=== PATIENT | female | born 2000 | race Caucasian/White ===

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

== ENCOUNTER 2024-03-18 23:22 | Emergency (ER) | payer OTHER ==
[2024-03-18 23:26] VITALS: BP 115/75; PULSE 86; RESP 20; TEMP 98.2; BMI 24.9
[2024-03-19 00:40] LABS: URINE APPEARANCE CLEAR; URINE BILIRUBIN NEGATIVE (NEGATIVE); URINE COLOR YELLOW; URINE GLUCOSE (UA) NEGATIVE (NEGATIVE); URINE KETONE NEGATIVE (NEGATIVE); URINE LEUK ESTERASE NEGATIVE (NEGATIVE); URINE NITRITE NEGATIVE (NEGATIVE); URINE PROTEIN NEGATIVE (NEGATIVE); URINE UROBILINOGEN 0.2 mg/dL (0.2-1.0)
[2024-03-19] MEDS ORDERED: ACETAMINOPHEN INJECTION 100 ML IVPB ONE (00:48)
[2024-03-19] MEDS: ACETAMINOPHEN 1000 MG/100 ML BAG IVPB ONE (01:04)
[2024-03-19 01:10] LABS: BASO % 0.1 % (0-2.0); EOS % 0.4 % (0-4.5); HEMATOCRIT 36.9 % (32.4-45.2); HEMOGLOBIN 12.7 GM/dL (10.7-15.3); MCH 32.6 pg (25.7-33.7); MCHC 34.4 g/dl (32.0-36.0); MEAN CELL VOLUME 94.8 fl (80-96); MEAN PLT VOLUME 6.8 fl (7.5-11.1); MONO % 8.7 % (3.8-10.2); NEUT % 69.8 % (42.8-82.8); PLATELET COUNT 357 10^3/uL (134-434); RDW 12.9 % (11.6-15.6); WHITE BLOOD COUNT 11.5 K/mm3 (4.0-10.0)
[2024-03-19 01:30] LABS: POTASSIUM 3.7 mmol/L (3.5-5.1)
[2024-03-19 01:32] LABS: ALBUMIN 3.2 g/dl (3.4-5.0); BLOOD UREA NITROGEN 5.3 mg/dL (7-18); CALCIUM 9.3 mg/dL (8.5-10.1)
[2024-03-19 01:35] LABS: CREATININE 0.4 mg/dL (0.55-1.3)
[2024-03-19 01:37] LABS: BILIRUBIN,TOTAL 0.3 mg/dL (0.2-1); TOT PROT 6.3 g/dl (6.4-8.2)
== END 2024-03-19 02:12 | disposition home or self-care (01) ==
LOC: JER 23:22
DX: O26.891 Other specified pregnancy related conditions, first trimester (principal); R10.30 Lower abdominal pain, unspecified; R10.2 Pelvic and perineal pain; Z3A.08 8 weeks gestation of pregnancy
CPT/HCPCS: 36415; 76817-TC; 80053; 81003; 84702; 84703; 85025; 86850; 86900; 86901; 87086; 99284-25